=== PATIENT | female | born 1980 ===

== ENCOUNTER 2017-05-18 13:09 | Inpatient (IN) | payer OTHER ==
[~2017-05-18] VITALS: Ht 170.2 cm; Wt 75.7 kg
[2017-05-18] MEDS ORDERED: ATENOLOL25 MG PO (13:47)
[2017-05-18] MEDS ORDERED: NORETHINDRONE AC5 M1 PO (13:48)
== END 2017-05-30 13:41 | disposition home or self-care (01) | DRG 743 ==
LOC: SURH 05-27 05:27 → O/R 05-27 05:27 → CIR.AMB 05-27 10:58 → EDSTATUS 05-27 10:58 → SURG 05-27 10:59 → SURH 05-28 11:42
PROVIDERS: Obstetrics & Gynecology Gynecologic Oncology
PROC: 0UJD4ZZ Inspection of Uterus and Cervix, Percutaneous Endoscopic Approach (ICD-10-PCS; 2017-05-27)
PROC: 0UT20ZZ Resection of Bilateral Ovaries, Open Approach (ICD-10-PCS; 2017-05-27)
PROC: 0UT70ZZ Resection of Bilateral Fallopian Tubes, Open Approach (ICD-10-PCS; 2017-05-27)
PROC: 0UT90ZL Resection of Uterus, Supracervical, Open Approach (ICD-10-PCS; principal; 2017-05-27 11:45)
DX: N80.0 Endometriosis of uterus (principal); N80.1 Endometriosis of ovary